=== PATIENT | male | born 1975 | race Caucasian/White ===

== ENCOUNTER 2017-01-08 14:02 | Emergency (ER) | payer OTHER ==
[2017-01-08] MEDS ORDERED: NS 0.9% 1000 ML* 1,000 ML IV ONE (14:08)
[2017-01-08 14:36] LABS: Hematocrit 45 % (42-52); Hemoglobin 14.9 g/dl (14.0-18.0); Mean Corpuscular HGB Conc 33 g/dl (31-36); Mean Corpuscular Hemoglobin 31 pg (27-31); Mean Corpuscular Volume 93 fL (80-94); Mean Platelet Volume 8 um3 (7.4-10.4); Red Blood Count 4.81 10^6/ul (4.0-5.4); Red Cell Distribution Width 14 % (10.5-15); White Blood Count 6.2 10^3/ul (3.5-10.8)
--- NOTE | 2017-01-08 15:13 | RAD ---
INDICATION: Dizziness. COMPARISON: There are no prior studies available for comparison. TECHNIQUE: Dual-energy PA and lateral views of the chest were obtained. FINDINGS: The heart is within normal limits in size. Mediastinal and hilar contours appear within normal limits. The lungs are clear. No pleural effusion is present. IMPRESSION: NO EVIDENCE FOR ACTIVE CARDIOPULMONARY DISEASE.
[2017-01-08 15:20] LABS: ALT 21 U/L (7-52); Albumin 4.7 g/dL (3.2-5.2); Alkaline Phosphatase 43 U/L (34-104); BUN/Creatinine Ratio 9.8 (8-20); Blood Urea Nitrogen 12 mg/dL (6-24); C Reactive Protein < 1.00 mg/L (< 5.00); CO2 Carbon Dioxide 20 mmol/L (22-32); Calcium 9.7 mg/dL (8.6-10.3); Chloride 105 mmol/L (101-111); Creatine Kinase 217 U/L (10-223); EGFR African American 84.2 (>60); EGFR Non-African American 65.5 (>60); Globulin 2.4 g/dL (2-4); Glucose 115 mg/dL (70-100); Sodium 137 mmol/L (133-145); Total Protein 7.1 g/dL (6.4-8.9)
[2017-01-08 15:27] LABS: TSH (Thyroid Stimulating Horm) 0.68 mcIU/mL (0.34-5.60)
[2017-01-08 15:30] LABS: AST 32 U/L (13-39); Anion Gap 12 mmol/L (2-11); Potassium 4.3 mmol/L (3.5-5.0)
[2017-01-08 15:46] LABS: Urine Bilirubin Negative (Negative); Urine Glucose Negative (Negative); Urine Nitrite Negative (Negative)
[2017-01-08 16:38] VITALS: BP 118/61
--- NOTE | 2017-01-08 17:01 | ED ---
Sharri Zhang SooYoung, scribed for Phil Noonan MD on 01/08/17 at 1409 . Dizziness - HPI Summary HPI Summary: A 41 y/o M FERN presents to ED with c/o acute, sudden onset dizziness/weakness [employer]. Pt is an [employer] instructor, and was working out doing squats, box jumps, pull ups, when he suddenly felt very dizzy, hot and had a "weird feeling" in his chest, which he specifies was not painful. He was in a sheridan this morning and only ate a hardboiled egg and granola, he states being well hydrated. In ED , he states feeling "a little" better. - History Of Current Complaint Chief Complaint: EDDizziness Stated Complaint: SOB Time Seen by Provider: 01/08/17 14:08 Hx Obtained From: Patient Onset/Duration: Still Present, Suddenly Timing: Constant Severity Initially: Moderate Severity Currently: Moderate Character: Weak, Dizzy Associated Signs And Symptoms: Positive: Chest Pain - "weird feeling", Other: - pos: hot flash - Allergies/Home Medications Allergies/Adverse Reactions: Allergies Allergy/AdvReac Type Severity Reaction Status Date / Time No Known Allergies Allergy Verified 01/08/17 14:29 PMH/Surg Hx/FS Hx/Imm Hx Previously Healthy: Yes Respiratory History: Denies: Hx Chronic Obstructive Pulmonary Disease (COPD) Sensory History: Denies: Hx Legally Blind Opthamlomology History: Denies: Hx Legally Blind Infectious Disease History: No Infectious Disease History: Denies: Traveled Outside the [place] in Last 30 Days - Family History Known Family History: Positive: Diabetes - Social History Occupation: Employed Full-time Lives: With Family Alcohol Use: Occasionally Hx Substance Use: No Substance Use Type: Reports: None Hx Tobacco Use: No Smoking Status (MU): Never Smoked Tobacco Review of Systems Positive: Other - pos: hot flash. Negative: Fever Positive: Chest Pain - "werid feeling" Positive: Weakness - /dizziness All Other Systems Reviewed And Are Negative: Yes Physical Exam - Summary Physical Exam Summary: VITAL SIGNS: Reviewed. GENERAL: Patient is a well-developed and nourished MALE who is lying comfortable in the stretcher. Patient is not in any acute respiratory distress. HEAD AND FACE: No signs of trauma. No ecchymosis, hematomas or skull depressions. No sinus tenderness. EYES: PERRLA, EOMI x 2, No injected conjunctiva, no nystagmus. EARS: Hearing grossly intact. Ear canals and tympanic membranes are within normal limits. MOUTH: Oropharynx within normal limits. NECK: Supple, trachea is midline, no adenopathy, no JVD, no carotid bruit, no c- spine tenderness, neck with full ROM. CHEST: Symmetric, no tenderness at palpation LUNGS: Clear to auscultation bilaterally. No wheezing or crackles. CVS: Regular rate and rhythm, S1 and S2 present, no murmurs or gallops appreciated. ABDOMEN: Soft, non-tender. No signs of distention. No rebound, no guarding, and no masses palpated. Bowel sounds are normal. EXTREMITIES: FROM in all major joints, no edema, no cyanosis or clubbing. NEURO: Alert and oriented x 3. No acute neurological deficits. Speech is normal and follows commands. SKIN: Dry and warm Triage Information Reviewed: Yes Vital Signs On Initial Exam: Initial Vitals Temp Pulse Resp BP Pulse Ox 98.2 F 81 16 138/78 100 01/08/17 14:06 01/08/17 14:06 01/08/17 14:06 01/08/17 14:06 01/08/17 14:06 Vital Signs Reviewed: Yes Diagnostics - Vital Signs Vital Signs Temp Pulse Resp BP Pulse Ox 01/08/17 14:06 98.2 F 81 16 138/78 100 - Laboratory Lab Results: Lab Results 01/08/17 01/08/17 01/08/17 Range/Units 14:15 14:15 14:15 WBC 6.2 (3.5-10.8) 10^3/ul RBC 4.81 (4.0-5.4) 10^6/ul Hgb 14.9 (14.0-18.0) g/dl Hct 45 (42-52) % MCV 93 (80-94) fL MCH 31 (27-31) pg MCHC 33 (31-36) g/dl RDW 14 (10.5-15) % Plt Count 227 (150-450) 10^3/ul MPV 8 (7.4-10.4) um3 Neut % (Auto) 46.1 (38-83) % Lymph % (Auto) 38.6 (25-47) % [place] % (Auto) 8.1 (1-9) % Eos % (Auto) 6.2 H (0-6) % Baso % (Auto) 1.0 (0-2) % Absolute Neuts (auto) 2.8 (1.5-7.7) 10^3/ul Absolute Lymphs (auto) 2.4 (1.0-4.8) 10^3/ul Absolute Monos (auto) 0.5 (0-0.8) 10^3/ul Absolute Eos (auto) 0.4 (0-0.6) 10^3/ul Absolute Basos (auto) 0.1 (0-0.2) 10^3/ul Absolute Nucleated RBC 0 10^3/ul Nucleated RBC % 0.1 Sodium 137 (133-145) mmol/L Potassium 4.3 (3.5-5.0) mmol/L Chloride 105 (101-111) mmol/L Carbon Dioxide 20 L (22-32) mmol/L Anion Gap 12 H (2-11) mmol/L BUN 12 (6-24) mg/dL Creatinine 1.22 H (0.67-1.17) mg/dL Est GFR ( Amer) 84.2 (>60) Est GFR (Non-Af Amer) 65.5 (>60) BUN/Creatinine Ratio 9.8 (8-20) Glucose 115 H (70-100) mg/dL Lactic Acid 4.3 H* (0.5-2.0) mmol/L Calcium 9.7 (8.6-10.3) mg/dL Magnesium 2.0 (1.9-2.7) mg/dL Total Bilirubin 0.70 (0.2-1.0) mg/dL AST 32 (13-39) U/L ALT 21 (7-52) U/L Alkaline Phosphatase 43 (34-104) U/L Total Creatine Kinase 217 (10-223) U/L Troponin I 0.00 (<0.04) ng/mL C-Reactive Protein < 1.00 (< 5.00) mg/L B-Natriuretic Peptide ( - 100) pg/mL Total Protein 7.1 (6.4-8.9) g/dL Albumin 4.7 (3.2-5.2) g/dL Globulin 2.4 (2-4) g/dL Albumin/Globulin Ratio 2.0 (1-3) TSH 0.68 (0.34-5.60) mcIU/mL Urine Color Urine Appearance Urine pH (5-9) Ur Specific [place] (1.010-1.030) Urine Protein (Negative) Urine Ketones (Negative) Urine Blood (Negative) Urine Nitrate (Negative) Urine Bilirubin (Negative) Urine Urobilinogen (Negative) Ur Leukocyte Esterase (Negative) Urine Glucose (Negative) Urine Ascorbic Acid (Negative) 01/08/17 01/08/17 Range/Units 14:15 15:27 WBC (3.5-10.8) 10^3/ul RBC (4.0-5.4) 10^6/ul Hgb (14.0-18.0) g/dl Hct (42-52) % MCV (80-94) fL MCH (27-31) pg MCHC (31-36) g/dl RDW (10.5-15) % Plt Count (150-450) 10^3/ul MPV (7.4-10.4) um3 Neut % (Auto) (38-83) % Lymph % (Auto) (25-47) % [place] % (Auto) (1-9) % Eos % (Auto) (0-6) % Baso % (Auto) (0-2) % Absolute Neuts (auto) (1.5-7.7) 10^3/ul Absolute Lymphs (auto) (1.0-4.8) 10^3/ul Absolute Monos (auto) (0-0.8) 10^3/ul Absolute Eos (auto) (0-0.6) 10^3/ul Absolute Basos (auto) (0-0.2) 10^3/ul Absolute Nucleated RBC 10^3/ul Nucleated RBC % Sodium (133-145) mmol/L Potassium (3.5-5.0) mmol/L Chloride (101-111) mmol/L Carbon Dioxide (22-32) mmol/L Anion Gap (2-11) mmol/L BUN (6-24) mg/dL Creatinine (0.67-1.17) mg/dL Est GFR ( Amer) (>60) Est GFR (Non-Af Amer) (>60) BUN/Creatinine Ratio (8-20) Glucose (70-100) mg/dL Lactic Acid (0.5-2.0) mmol/L Calcium (8.6-10.3) mg/dL Magnesium (1.9-2.7) mg/dL Total Bilirubin (0.2-1.0) mg/dL AST (13-39) U/L ALT (7-52) U/L Alkaline Phosphatase (34-104) U/L Total Creatine Kinase (10-223) U/L Troponin I (<0.04) ng/mL C-Reactive Protein (< 5.00) mg/L B-Natriuretic Peptide 35 ( - 100) pg/mL Total Protein (6.4-8.9) g/dL Albumin (3.2-5.2) g/dL Globulin (2-4) g/dL Albumin/Globulin Ratio (1-3) TSH (0.34-5.60) mcIU/mL Urine Color Yellow Urine Appearance Clear Urine pH 6.0 (5-9) Ur Specific [place] 1.019 (1.010-1.030) Urine Protein Negative (Negative) Urine Ketones Trace H (Negative) Urine Blood Negative (Negative) Urine Nitrate Negative (Negative) Urine Bilirubin Negative (Negative) Urine Urobilinogen Negative (Negative) Ur Leukocyte Esterase Negative (Negative) Urine Glucose Negative (Negative) Urine Ascorbic Acid * H (Negative) Result Diagrams: 01/08/17 14:15 01/08/17 14:15 Lab Statement: Any lab studies that have been ordered have been reviewed, and results considered in the medical decision making process. - Radiology CXR Xray Interpretation: No Acute Changes - IMPRESSION: No evidence for active cardiopulmonary dz. Radiology Interpretation Completed By: Radiologist - EKG 1 EKG Rhythm: Sinus Rhythm - 72bpm ST Segment: Normal - no ST elevation EKG Interpretation: read at 1424 Dizzy Course/Dx - Course Assessment/Plan: A 41 y/o M FERN presents to ED with c/o acute, sudden onset dizziness/weakness [employer]. Pt is an [employer] instructor, and was working out doing squats, box jumps, pull ups, when he suddenly felt very dizzy, hot and had a "weird feeling" in his chest, which he specifies was not painful. He was in a sheridan this morning and only ate a hardboiled egg and granola, he states being well hydrated. In ED, he states feeling "a little" better. In the ED course an IV access was obtained. Patient was placed in a cardiac rehabilitation specialist. Patient was started with IV fluids. Labs within normal limits except for. Troponin #1: 0.00. EKG shows a NSR at w/o ST elevations. CXR impression: No acute pathology. In the ED course he has been improving and stable. I discussed all the findings and test results with the patient. Patient was instructed to return to the emergency room immediately if any of the symptoms return or worsens. Patient understands and agrees. Plan of care was discussed with the patient and patient understands and agrees with the plan of care. All questions were answered at patient satisfaction. There were no further complaints or concerns. Patient is alert and oriented x 3. Patient vital signs are stable. Patient is to follow up with primary care physician in the next 2 to 3 days. Patient understands and agrees - Diagnoses Differential Diagnosis/HQI/PQRI: Anxiety, Meniere's Disease, Other - Vertigo Provider Diagnoses: Dizziness Discharge - Discharge Plan Condition: Good Disposition: HOME Patient Education Materials: Dizziness (ED) Referrals: [facility] [place] PHYSICIAN REFERRAL [Outside] Non Staff,Doctor [Primary Care Provider] - Additional Instructions: Please return to the ED if you experience new or worsening symptoms. The documentation as recorded by the Sharri victor SooYoung accurately reflects the service I personally performed and the decisions made by me, Phil Noonan MD.
== END 2017-01-08 16:37 | disposition home or self-care (01) ==
LOC: ED 14:02
DX: R42 Dizziness and giddiness (principal); R07.9 Chest pain, unspecified
CPT/HCPCS: 36415; 71020; 80053; 81003; 82550; 83605; 83735; 83880; 84443; 84484; 85025; 86140; 93005; 99283